=== PATIENT | female | born 1930 | race Caucasian/White ===

== ENCOUNTER → 2017-01-13 11:11 | Outpatient (CLI) | payer MEDICARE, OTHER | END | disposition home or self-care (01) | LOC: D.CT 11:11 | DX: R27.8 Other lack of coordination (principal); R41.3 Other amnesia ==

== ENCOUNTER 2017-01-22 04:42 | Inpatient (IN) | payer MEDICARE, OTHER ==
[~2017-01-22] VITALS: Ht 157.5 cm; Wt 54.4 kg
[2017-01-22 06:26] LABS: BASOPHILS 0.2 % (0-2); EOSINOPHILS 0.1 % (0-7); HEMATOCRIT 41.8 % (36.0-48.0); HEMOGLOBIN 14.1 g/dL (12-16); IMMATURE GRANULOCYTES 0.2 % (0-5); LYMPHOCYTES 4.2 % (15-50); MCH 33.6 pg (26.0-34.0); MCHC 33.7 g/dL (31.0-37.0); MCV 99.5 fL (80.0-100.0); MEAN PLATELET VOLUME 10.8 fL (7.4-10.4); MONOCYTES 8.4 % (2-11); NEUTROPHILS 86.9 % (40-80); PLATELET COUNT 184 10x3/uL (130-400); RDW 14.2 % (11.5-14.5); WBC 11.5 10x3/uL (4.8-10.8)
[2017-01-22 06:49] LABS: ALBUMIN 3.7 g/dL (3.4-5.0); ALKALINE PHOSPHATASE 51 U/L (46-116); ALT (SGPT) 21 U/L (10-68); AMYLASE - SERUM 30 U/L (25-115); CALC OSMOLALITY 266 mosm/kg (275-300); CALCIUM 8.8 mg/dL (8.5-10.1); CARBON DIOXIDE 29.7 mmol/L (21.0-32.0); CHLORIDE - SERUM 97 mmol/L (98-107); CREATININE - SERUM 0.6 mg/dL (0.6-1.3); GLUCOSE 124 mg/dL (74-106); LIPASE 149 U/L (73-393); PROTEIN - SERUM 7.4 g/dL (6.4-8.2); SODIUM 132 mmol/L (136-145); UREA NITROGEN 15 mg/dL (7-18); eGFR NON AFRICAN AMERICAN > 90 mL/min (90-120)
[2017-01-22 07:26] LABS: APPEARANCE CLEAR (CLEAR); BILIRUBIN NEGATIVE (NEGATIVE); COLOR DK YELLOW (YELLOW); GLUCOSE NEGATIVE (NEGATIVE); KETONE LARGE mg/dL (NEGATIVE); LEUKOCYTE ESTERASE NEGATIVE (NEGATIVE); NITRITE NEGATIVE (NEGATIVE); PROTEIN TRACE mg/dL (NEGATIVE); UROBILINOGEN NORMAL (NORMAL)
[2017-01-22 07:35] LABS: BACTERIA FEW /hpf (NONE SEEN); EPITHELIAL CELLS 0-5 /hpf (0-5); GRANULAR CAST OCC /lpf (NONE SEEN); HYALINE CAST OCC /lpf (NONE SEEN); MUCUS >1+ /lpf (NONE SEEN); RED CELLS - URINE 0-5 /hpf (0-5); WHITE CELLS - URINE 0-5 /hpf (0-5)
--- NOTE | 2017-01-22 10:45 | NUR ---
ASSESSMENT PER FLOW SHEET.PT WITHOUT DISTRESS AT PRESENT.FAMILY DECLINES NGT UNTIL SURGERY AND THEY SAID WILL PLACE IT WHILE SHE IS SLEEPING.FALL PREVENTION IN PLACE WITH BED ALARM BED
[2017-01-22 16:29] VITALS: BP 148/70; BMI 22.0
--- NOTE | 2017-01-22 16:36 | NUR ---
PT VERY UPSET THIS AFTERNOON.REFUSING MEDS AND TRYING TO GET OUT OF BED. CAREGIVER AT BEDSIDE SAYS THIS IS NOT HER NORMAL BEHAVIOR. CAREGIVER HAS CALLED FAMILY.
--- NOTE | 2017-01-22 17:00 | NUR ---
BETTER NOW FAMILY IS BACK.COOPERATIVE TO LETTING US PROVIDE CARE.REMAINS WITHOUT EMESIS.WITHOUT C/O PAIN.CONT PLAN OF CARE
[2017-01-22 20:00] VITALS: BP 152/90
--- NOTE | 2017-01-22 22:32 | NUR ---
REC'D LYING IN BED. ALERT AND ORIENTED X3. DENIED PAIN AT THIS TIME. NO DISTRESS NOTED. HAS A CAREGIVER WITH HER 26/12. DAUGHTERS SIGNED CONSENT FORMS FOR SURGERY IN THE AM, ON CHART. INSRUCTED TO CALL IF NEEDED ANYTHING. VERBALIZED UNDERSTANDING. BED LOW, LOCKED, CALL LIGHT IN REACH, ALARM ON. WILL ADMIN PM/AM MEDS PRESCRIBED.
[2017-01-23] VITALS: BP 156/84
--- NOTE | 2017-01-23 00:30 | NUR ---
PT RESTING QUIETLY, EYES CLOSED. RESP EVEN, UNLABORED. NO DISTRESS NOTED. CONTINUE COUNTY ADVISER'S PLAN OF CARE.
[2017-01-23 04:00] VITALS: BP 147/71
[2017-01-23 05:53] LABS: BASOPHILS 0.3 % (0-2); EOSINOPHILS 0.4 % (0-7); HEMATOCRIT 38.5 % (36.0-48.0); HEMOGLOBIN 12.7 g/dL (12-16); IMMATURE GRANULOCYTES 0.3 % (0-5); LYMPHOCYTES 10.3 % (15-50); MCH 33.4 pg (26.0-34.0); MCV 101.3 fL (80.0-100.0); MEAN PLATELET VOLUME 11.3 fL (7.4-10.4); MONOCYTES 9.4 % (2-11); NEUTROPHILS 79.3 % (40-80); PLATELET COUNT 185 10x3/uL (130-400); RDW 14.3 % (11.5-14.5)
[2017-01-23 06:14] LABS: ALKALINE PHOSPHATASE 40 U/L (46-116); ALT (SGPT) 18 U/L (10-68); CALC OSMOLALITY 274 mosm/kg (275-300); CALCIUM 8.1 mg/dL (8.5-10.1); CARBON DIOXIDE 27.5 mmol/L (21.0-32.0); CHLORIDE - SERUM 103 mmol/L (98-107); CREATININE - SERUM 0.5 mg/dL (0.6-1.3); GLUCOSE 101 mg/dL (74-106); MAGNESIUM - SERUM 1.7 mg/dL (1.8-2.4); PHOSPHOROUS 3.4 mg/dL (2.5-4.9); PRE-ALBUMIN 15.3 mg/dL (18.0-35.7); PROTEIN - SERUM 6.2 g/dL (6.4-8.2); SODIUM 137 mmol/L (136-145); UREA NITROGEN 14 mg/dL (7-18); eGFR NON AFRICAN AMERICAN > 90 mL/min (90-120)
[2017-01-23 06:15] LABS: POTASSIUM - SERUM 3.3 mmol/L (3.5-5.1)
--- NOTE | 2017-01-23 07:45 | NUR ---
PT ASSESSMENT COMPLETE AWAKE AND ALERT ORINETD TO NAME ONLY CAREGIVER AT BEDSIDE. KCL RIDER INFUSING PER PROTOCOL. SEE FLOWSHEET FOR COMPLETE ASSESSMENT. PT NPO FOR INGUNAL HERNIA REPAIR TODAY WITH DR BRANNON.
[2017-01-23 09:32] VITALS: BP 149/78
--- NOTE | 2017-01-23 09:50 | NUR ---
PATIENT IV ALARMING. POTASSIUM FINISHED. NOTIFIED DRY PASTE SUPERVISOR. NO COMPLAINTS OR SIGNS OF DISTRESS. FAMILY AT BEDSIDE. CALL LIGHT WITHIN REACH.
[2017-01-23 11:58] VITALS: BP 143/77
--- NOTE | 2017-01-23 12:55 | NUR ---
Patient Name: MAC BOSCH Admission Status: ER Accout number: [id number] Admission Date: 01-22-2017 : 1929 Admission Diagnosis: Attending: RUDOLPH Current LOS: 1 Anticipated DC Date: 01-25-2017 Planned Disposition: Home Primary Insurance: MEDICARE A & B Discharge Planning Comments: CM MET WITH MET WITH PATIENTS DAUGHTERS (RAY AND CESIA) REGARDING D/C NEEDS AND PLANS. DAUGHTERS STATED PATIENT LIVES AT [facility] AND WILL RETURN THERE WITH 24/ CARE WITH PRIVATE CAREGIVERS. PCP IS DR. ZHANG AND PHARMACY IS [facility]. PATIENT WAS GETTING AROUND BEFORE THIS SURGERY AND DAUGHTERS STATED SHE WILL NEED A ROLATOR WALKER AT DISCHARGE. BOTH DAUGHTERS ARE FROM [place] AND ARE AT BEDSIDE WITH PATIENT. CM WILL CONTINUE TO FOLLOW PATIENT WITH D/C NEEDS AND PLANS. PCP DR. VICENTE CASTRO ON [facility] [phone] RAY (DAUGHTER) [phone] CESIA (DAUGHTER) [phone] Support Team Member: Beverly Roberts How many steps to enter\exit or inside your home? 0 0 * PCP DR. ZHANG 0 * Pharmacy [facility] 0 * Preadmission Environment Assisted Living 0 * Facility Name [facility] 0 * ADLs Partial Dependent 0 * Partial ADLs (Assistance needed) Bathing Dressing Medication Management 0 * Other Equipment NONE 0 * List name and contact numbers for known caregivers / representatives who currently or will assist patient after discharge: RAY [phone] CESIA [phone] 0 * Community resources currently utilized Private Duty Care 0 * Please name any agencies selected above. PRIVATE 0 * Additional services required to return to the preadmission environment? Yes 0 * Can the patient safely return to the preadmission environment? Yes 0 * Has this patient been hospitalized within the prior 30 days at any hospital? No 0 Grand Total: 0
--- NOTE | 2017-01-23 13:00 | NUR ---
PT PREOPPED FAMILY REFUSED TO HAVE PO ROUBINOL CALL PLACED TO DR MCCORD NEW ORDER FOR .2 OF IV ROUBINAL UNABLE TO PUSH PER PROTOCOL ON FLOOR PER THIS NURSE WILL REPORT WHEN OR TEAM COMES TO TRANSPORT
[2017-01-23 13:28] VITALS: Ht 157.5 cm; Wt 54.4 kg
--- NOTE | 2017-01-23 15:04 | CN ---
PATIENT NAME:MAC BOSCH MEDICAL RECORD: [id number] : [birth year] LOCATION:D.[facility] ADMIT DATE: 01/22/17 ACCOUNT: [id number] CONSULTING PHYSICIAN: BUCKY BRANNON MD REFERRING PHYSICIAN: DOMINIC YUNG MD DATE OF CONSULTATION: 01/22/2017 Surgical Consultation CHIEF COMPLAINT: Vomiting. This is a patient of Dr. Witt. I have personally discussed the case with Dr. Lopez. I have personally reviewed the CT images. I have personally reviewed the CT report. The patient has had nausea and vomiting since yesterday morning. She has a reducible left inguinal hernia. I was able to reduce it in the presence of a female nurse in the Emergency Room and then later on the floor again. She has a small-bowel obstruction due to this hernia. I am going to plan for left inguinal hernia repair with mesh tomorrow. The risks, possible complications and alternatives to procedure were explained to the patient and her family. They elected to proceed. Palpation aggravates. Nothing alleviates. Symptoms are of sudden onset. The patient has some metallic clips in the left lower quadrant and that is from a prior colon resection performed by Dr. Mcmahan about 15 years ago. The patient rates her pain as severe pain. PAST MEDICAL AND SURGICAL HISTORY: Hypothyroidism, depression, hypertension, irritable bowel syndrome. ALLERGIES: ASPIRIN, PENICILLIN, AND VALIUM. HOME MEDICINES: Synthroid. REVIEW OF SYSTEMS: No fever, no chills. Positive for nausea and vomiting. Positive for left groin pain. Positive for abdominal distention. Positive for diffuse abdominal pain, which is mild. No night sweats, no weight loss, no anorexia. She is unable to keep liquids down. SOCIAL HISTORY: Nonsmoker. PHYSICAL EXAMINATION: GENERAL: The patient does appear acutely ill. Also appears chronically ill. VITAL SIGNS: Reviewed. The entire physical examination was performed in the presence of a female nurse. EARS: External ears appear normal. EYES: Extraocular movements are intact. NECK: Trachea is midline. CHEST: No intercostal retractions. PULMONARY: Nonlabored, no stridor. ABDOMEN: Nontender. No peritonitis to percussion. GENITOURINARY: Left inguinal hernia, which is reducible. PSYCHIATRIC: Anxious affect. CONSULT REPORT [id number] MAC BOSCH NEUROLOGIC: Answers questions appropriately. She is hard of hearing. BACK: Mild thoracic kyphosis is noted. LYMPHATICS: No lymphangitic streaking of the exposed extremities. IMPRESSION: Left inguinal hernia with small-bowel obstruction. The hernia is reducible, so hopefully the bowel obstruction will resolve by this time tomorrow as the patient had an anesthetic risk due to a full stomach. I have personally reviewed the CT images with the patient's daughters. PLAN: N.p.o. The patient declined the nasogastric tube. Left inguinal hernia repair with mesh in the OR tomorrow. TRANSINT:[id number] Voice Confirmation ID: [id number] DOCUMENT ID: [id number] BUCKY BRANNON MD at 1504 CC: [id number] DICTATION DATE: 01/22/17 1308 PROCESS LEAD: 01/22/17 1604 ADM IN [facility] [address] [place] [address]
--- NOTE | 2017-01-23 17:14 | NUR ---
PT IN OR AT THIS TIME. FAMILY WAITING IN [facility]. TRANSFERED TO ROOM 2218 EARLIER DUE TO PT FAMILY REFUSAL TO LET PT RETURN TO PREVIOUS ROOM BECAUSE OF WHAT THEY DETERMINED TO BE OVERUSE OF PANTS BUSHELER.
[2017-01-23 18:43] VITALS: BP 137/61
--- NOTE | 2017-01-23 18:45 | NUR ---
PT RETURNED TO ROOM FROM RECOVERY ROOM VIA BED AWAKE AND CONFUSED HOWEVER IS NORMAL FOR PT. VITAL SIGNS WITH IN NORMAL LIMITS.
[2017-01-23 20:00] VITALS: BP 147/70
--- NOTE | 2017-01-23 20:00 | NUR ---
ASSESSMENT PER FLOWSHEET. IV PATENT RT FOREARM OF NS AT 100CC'S/HR. SITE CLEAR. HUNG #4 OF K+ RIDER WAS ORDERED PREOP. DRESSING TO LEFT GROIN INCISIONAL SITE C/D/I. DAUGHTERS X2 AT BEDSIDE. CAREGIVER BEDSIDE. PT AWAKE FOR SHORT PERIODS OF TIME DRANK SOME APPLEJUICE. THEN BACK TO SLEEP.
--- NOTE | 2017-01-23 21:00 | NUR ---
PT NOW AWKE WANTING SOMETHING TO DRINK CHICKEN BROTH AND APPLE JUICE GIVEN TO PATIENT. ASSISTED BY CAREGIVER. DAUGHTERS HAVE NOW LEFT FOR HOME.
--- NOTE | 2017-01-23 22:00 | NUR ---
PT HAS NOW VOIDED X2 BLUE COLORED URINE. NO BM'S AT THIS TIME.
[2017-01-24] VITALS (7 sets, daily range): BP systolic 84–156; BP diastolic 44–85
--- NOTE | 2017-01-24 | NUR ---
EYES CLOSED RESPIRATIONS WITH EASE AND UNLABORED.
--- NOTE | 2017-01-24 02:00 | NUR ---
RESTING QUIETLY. SITTER AT BEDSIDE.
--- NOTE | 2017-01-24 04:00 | NUR ---
VOIDS ON BEDPAN. DENIES NEEDS.
[2017-01-24] MEDS ORDERED: ARICEPT5 MG PO (04:10)
[2017-01-24] MEDS ORDERED: CALMOSEPTINE OI71 GM TOPICAL (04:10)
[2017-01-24 05:55] LABS: BASOPHILS 0.1 % (0-2); EOSINOPHILS 0 % (0-7); HEMATOCRIT 36.3 % (36.0-48.0); HEMOGLOBIN 12.1 g/dL (12-16); IMMATURE GRANULOCYTES 0.2 % (0-5); LYMPHOCYTES 8.1 % (15-50); MCH 33.7 pg (26.0-34.0); MCHC 33.3 g/dL (31.0-37.0); MCV 101.1 fL (80.0-100.0); MONOCYTES 13.4 % (2-11); NEUTROPHILS 78.2 % (40-80); PLATELET COUNT 178 10x3/uL (130-400); RBC 3.59 10x6/uL (4.00-5.40); RDW 14.4 % (11.5-14.5); WBC 8.4 10x3/uL (4.8-10.8)
[2017-01-24 06:19] LABS: ALBUMIN 2.9 g/dL (3.4-5.0); ALKALINE PHOSPHATASE 38 U/L (46-116); ALT (SGPT) 20 U/L (10-68); BILIRUBIN - TOTAL 0.74 mg/dL (0.2-1.3); CALC OSMOLALITY 279 mosm/kg (275-300); CARBON DIOXIDE 23.7 mmol/L (21.0-32.0); CHLORIDE - SERUM 105 mmol/L (98-107); CREATININE - SERUM 0.5 mg/dL (0.6-1.3); GLUCOSE 131 mg/dL (74-106); POTASSIUM - SERUM 3.5 mmol/L (3.5-5.1); PROTEIN - SERUM 6.1 g/dL (6.4-8.2); SODIUM 139 mmol/L (136-145); UREA NITROGEN 13 mg/dL (7-18); eGFR NON AFRICAN AMERICAN > 90 mL/min (90-120)
--- NOTE | 2017-01-24 07:33 | NUR ---
pt seen and assessed. no complaints at present. confused to place and time. lungs clear. dressing noted to left groin clean and dry. bowel sounds present. currently up in chair at bedside with yellow armband and blue nonskid socks on. sitter at bedside. call light in reach
--- NOTE | 2017-01-24 11:18 | NUR ---
PT REMAINS DISORIENTED TO PLACE AND TIME. ANBULATED SEVERAL TIMES TO BSC AND VOIDS AND PASSING GAS. BACK TO CHAIR. FAMILY AT BEDSIDE.
--- NOTE | 2017-01-24 20:00 | NUR ---
ASSESMENT PER FLOWSHEET. DRESSING TO LEFT GROIN C/D/I. IV PATENT LEFT ARM OF NS AT 100CC'S/HR SITE CLEAR. WRAPPED ARM IN GAUZE WITH TAPE. BED ALARM BED ON AND ACTIVATED. SR UP X3 CALL LIGHT WITHIN REACH DAUGHTERS AT BEDSIDE WITH CAREGIVER. DAUGHTERS REQUESTING MD BE CALLED TO GET SOME MED TO HELP THEIR MOM REST TONIGHT. NOTIFIED YULIA MUNOZ ORDERS REC'D.
--- NOTE | 2017-01-24 21:39 | NUR ---
MEDS GIVEN PER AUG. MELATONIN 6MG PO GIVEN FOR REST.
--- NOTE | 2017-01-24 22:30 | NUR ---
REMAINS RESTLESS. AMBULATED IN HALLWAY WITH CAREGIVER. REMAINS CONFUSED STATES GOING TO HER HOME RIGHT NOW. ASSISTED BACK TO HER ROOM. SITTING UP I CHAIR AT BEDSIDE. STILL NO BM'S.
--- NOTE | 2017-01-25 | NUR ---
FIXED PATIENT PRUNE JUICE/SPRITE WARMED FOR CONSTIPATION. DAUGHTERS AT BEDSIDE.
--- NOTE | 2017-01-25 00:43 | NUR ---
RESTING NOW IN BED DAUGHTERS REQUESTED NO VITAL SIGNS UNTIL 0400. PT CALM AND TRYING TO GO TO SLEEP. BED ALARM ON CAREGIVER AT BEDSIDE.
--- NOTE | 2017-01-25 02:00 | NUR ---
EYES CLOSED RESPIRATIONS WITH EASE AND UNLABORED. CAREGIVER AT BEDSIDE.
[2017-01-25 04:00] VITALS: BP 142/75
--- NOTE | 2017-01-25 04:30 | NUR ---
RESTING QUIETLY. SR UP X3 CALL LIGHT WITHIN REACH. BED ALARM BED ON. SITTER AT BEDSIDE.
--- NOTE | 2017-01-25 06:00 | NUR ---
MEDS GIVEN PER MAR. NO CHANGES IN ASSESSMENT
[2017-01-25 06:21] LABS: BASOPHILS 0.8 % (0-2); EOSINOPHILS 3.7 % (0-7); HEMATOCRIT 34.9 % (36.0-48.0); HEMOGLOBIN 11.5 g/dL (12-16); LYMPHOCYTES 20.4 % (15-50); MCH 33.3 pg (26.0-34.0); MCV 101.2 fL (80.0-100.0); MEAN PLATELET VOLUME 10.9 fL (7.4-10.4); MONOCYTES 17.3 % (2-11); NEUTROPHILS 57.8 % (40-80); PLATELET COUNT 176 10x3/uL (130-400); RBC 3.45 10x6/uL (4.00-5.40); RDW 14.3 % (11.5-14.5)
[2017-01-25 06:23] LABS: WBC 4.9 10x3/uL (4.8-10.8)
[2017-01-25 06:45] LABS: ALBUMIN 2.7 g/dL (3.4-5.0); ALKALINE PHOSPHATASE 36 U/L (46-116); ALT (SGPT) 20 U/L (10-68); CALC OSMOLALITY 276 mosm/kg (275-300); CALCIUM 7.7 mg/dL (8.5-10.1); CARBON DIOXIDE 24.4 mmol/L (21.0-32.0); CHLORIDE - SERUM 106 mmol/L (98-107); CREATININE - SERUM 0.4 mg/dL (0.6-1.3); GLUCOSE 97 mg/dL (74-106); POTASSIUM - SERUM 3.2 mmol/L (3.5-5.1); PROTEIN - SERUM 5.3 g/dL (6.4-8.2); SODIUM 139 mmol/L (136-145); UREA NITROGEN 11 mg/dL (7-18); eGFR NON AFRICAN AMERICAN > 90 mL/min (90-120)
--- NOTE | 2017-01-25 07:20 | NUR ---
REPORT RECEIVED, ASSUMED CARE OF PT. PT RESTING WITH EYES SHUT, NO SIGNS OF ACUTE DISTRESS. BED ALARM ON. L FOREARM IV INFUSING ORDERED, DRSG CLEAN, DRY AND INTACT. CARE-ACCOUNT SERVICES ANALYST AT BEDSIDE. BED IN LOWEST POSITION, SIDE RAILS UP X 2, CALL LIGHT WITHIN REACH.
[2017-01-25 08:42] VITALS: BP 166/86
--- NOTE | 2017-01-25 10:49 | NUR ---
Lacy CLARKE DRSG CHANGED. CLEAN, DRY AND INTACT.
[2017-01-25 12:16] VITALS: BP 155/88
--- NOTE | 2017-01-25 14:19 | NUR ---
NUTRITION MONITORING & EVAL CHART REVIEWED. NOTE POSSIBLE DC. REG DIET BUT POOR INTAKE RECENT MEALS. RD FOLLOWING
--- NOTE | 2017-01-25 16:12 | NUR ---
PT RESTING IN BED, EYES CLOSED, EASILY AROUSED. CAREGIVER AT BEDSIDE. BED IN LOWEST POSITION, SIDE RAILS UP X 2, BED ALARM ON, CALL LIGHT WITHIN REACH.
[2017-01-25 16:19] VITALS: BP 166/99
--- NOTE | 2017-01-25 19:23 | NUR ---
PT RESTING IN ROOM, FAMILY AT BEDSIDE, NO COMPLAINTS AT THIS TIME. BED IN LOWEST POSITION, SIDE RAILS UP X 2, BED ALARM ON, CALL LIGHT WITHIN REACH.
[2017-01-25 20:00] VITALS: BP 171/93
--- NOTE | 2017-01-25 20:00 | NUR ---
ASSESSMENT PER FLOWSHEET. IV SITE SWOLLEN IV REMOVED WITH TIP INTACT. FAMILY STATES PT IS GOING HOME IN AM AND REQUESTED NO IV BE PLACED. PATIENT IS EATING AND DRINKING WELL. FAMILY MEMBERS AND VENEER PRESS OPERATOR AT BEDSIDE.BED ALARM BED ON SR UP X3 CALL LIGHT WITHIN REACH.
--- NOTE | 2017-01-25 22:00 | NUR ---
MEDS GIVEN PER MAR. CAREGIVER WALKS OUTSIDE FOR A BREAK. DAUGHTERS HAVE GONE HOME FOR THE NIGHT.
--- NOTE | 2017-01-25 22:30 | NUR ---
CAREGIVER RETURNS TO ROOM.
--- NOTE | 2017-01-25 23:47 | NUR ---
PT RESTING IN BED. EYES CLOSED RESPIRATIONS WITH EASE AND UNLABORED.
--- NOTE | 2017-01-26 02:30 | NUR ---
BED ALARM SOUNDING PATIENT TRYING TO CLIMB OUT OF BED. ASSISTED TO BATHROOM VOIDED ON COMMODE. PATIENT REMAINS CONFUSED. TO SURROUNDINGS.ASSISTED BACK TO BED SR UP X3 CALL LIGHT WITHIN REACH. BED ALARM ACTIVATED. SITTER AT BEDSIDE SLEEPING IN THE CHAIR.
[2017-01-26 04:00] VITALS: BP 143/81
--- NOTE | 2017-01-26 04:33 | NUR ---
EYES CLOSED RESPIRATIONS WITH EASE AND UNLABORED.
[2017-01-26 06:01] LABS: BASOPHILS 0.7 % (0-2); EOSINOPHILS 3.3 % (0-7); HEMATOCRIT 39.2 % (36.0-48.0); HEMOGLOBIN 13.1 g/dL (12-16); IMMATURE GRANULOCYTES 0.2 % (0-5); LYMPHOCYTES 20.9 % (15-50); MCH 33.7 pg (26.0-34.0); MCHC 33.4 g/dL (31.0-37.0); MCV 100.8 fL (80.0-100.0); MONOCYTES 12.8 % (2-11); NEUTROPHILS 62.1 % (40-80); PLATELET COUNT 207 10x3/uL (130-400); RBC 3.89 10x6/uL (4.00-5.40); RDW 14.2 % (11.5-14.5); WBC 5.4 10x3/uL (4.8-10.8)
--- NOTE | 2017-01-26 06:12 | NUR ---
AWAKE CONFUSED CAREGIVER GAVE PT BATH AND LINENS CHANGED PT NOW SITTING IN CHAIR AT BEDSIDE.
[2017-01-26 06:28] LABS: ALBUMIN 3.1 g/dL (3.4-5.0); ALKALINE PHOSPHATASE 43 U/L (46-116); ALT (SGPT) 23 U/L (10-68); CARBON DIOXIDE 28.3 mmol/L (21.0-32.0); CHLORIDE - SERUM 102 mmol/L (98-107); CREATININE - SERUM 0.5 mg/dL (0.6-1.3); GLUCOSE 101 mg/dL (74-106); POTASSIUM - SERUM 3.3 mmol/L (3.5-5.1); PROTEIN - SERUM 6.6 g/dL (6.4-8.2); SODIUM 137 mmol/L (136-145); eGFR NON AFRICAN AMERICAN > 90 mL/min (90-120)
[2017-01-26 06:31] LABS: CALC OSMOLALITY 271 mosm/kg (275-300); UREA NITROGEN 8 mg/dL (7-18)
--- NOTE | 2017-01-26 07:20 | NUR ---
REPORT RECIEVED, ASSUMED CARE OF PT. PT UP TO CHAIR. CAREGIVER IN ROOM. NO COMPLAINTS AT THIS TIME.
--- NOTE | 2017-01-26 09:08 | OP ---
PATIENT NAME: MAC BOSCH MEDICAL RECORD: [id number] :[birth year] LOCATION:D.[facility]18 ADMISSION DATE:01/22/17 SURGEON: BUCKY BRANNON MD DATE OF OPERATION: 01/23/2017 PREOPERATIVE DIAGNOSES: 1. Incarcerated left inguinal hernia. 2. Incarcerated left femoral inguinal hernia. PROCEDURE: Left inguinal hernia repair with bilayered polypropylene preperitoneal mesh. SURGEON: Bucky Brannon MD. GARNETT FIXER: None. BLOOD LOSS: Minimal. ANESTHESIA: General. COMPLICATIONS: None. The risks, possible complications and alternatives to procedure were explained to patient's family and the patient. They elected to proceed. OPERATIVE COURSE: The patient was conveyed to operating room electively on 01/23/2017. General anesthesia was induced by the anesthesia staff. The abdomen and genitals were sterilely prepped and draped. A transverse incision was accomplished in the left groin. Sharp dissection was carried down through skin and subcutaneous tissue as well as Maryjane fascia. The external oblique aponeurosis was incised along the direction of its fibers. I bluntly dissected down through the internal oblique and transversus abdominis muscle layers. A preperitoneal pocket was fashioned bluntly. I divided the round ligament on the right. I then entered the hernia sac. There was incarcerated preperitoneal fat. There was no incarcerated bowel. I opened the peritoneum wider and ran portions of small bowel that I could identify in the left lower quadrant. There was 1 portion of small bowel that was bruised, but it was not necrotic and I think that that is the bowel that I was able to reduce the day before. I remove some incarcerated preperitoneal fat from the hernia sac. The hernia sac was removed as well. This was done sharply. I reperitonealized with a running 3-0 Vicryl suture. I then cut 2 ovals out of polypropylene mesh. The 2 ovals were sutured, one on top of the other with a running #1 Surgidac. The mesh was placed in the preperitoneal space. I then sutured the transverse abdominis and internal oblique muscle layers together with the underlying mesh in a horizontal mattress fashion with 0 Surgidac. The external oblique aponeurosis was closed with running #1 Vicryls. Maryjane fascia was approximated with interrupted 3-0 Vicryls. The subdermis was approximated with interrupted 3-0 Vicryls. The skin was approximated with a running intracuticular 3-0 Vicryl. Benzoin and Steri-Strips were applied. The patient was then extubated and conveyed to post-anesthesia care unit. TRANSINT:[id number] Voice Confirmation ID: [id number] DOCUMENT ID: [id number] OPERATIVE REPORT [id number] MAC BOSCH ROBERT MD at 0908 CC: DOMINIC YUGN MD [id number] DICTATION DATE: 01/24/17 1144 SUPPLY TEACHER: 01/24/17 1437 ADM IN [place] [id number] [place] [id number]
[2017-01-26] MEDS ORDERED: MIRALAX17 GM PO (10:37)
--- NOTE | 2017-01-26 10:54 | NUR ---
Wound care consult: Pt has no chronic skin breakdown or issues. There is a surgical incision on left groin with dressing clean, dry and intact.
--- NOTE | 2017-01-26 11:03 | NUR ---
CM spoke to both daughters to make sure they had everything they needed. Patient will be returning to [facility] living with 24 hours caregivers. Patient is being transferred via her caregivers car and the daughters will follow behind. [facility] notified of discharge
[2017-01-26] MEDS ORDERED: HYDROCHLOROTH12.5 M1 PO (11:23)
[2017-01-26] MEDS ORDERED: SYNTHROID100 MCG PO (11:26)
--- NOTE | 2017-01-26 12:10 | NUR ---
ALL DISCHARGE INSTRUCTIONS GIVEN TO PT AND FAMILY. VERBALIZED UNDERSTANDING.
--- NOTE | 2017-01-26 13:12 | NUR ---
PT DISCHARGED FROM FLOOR WITH WHEELCHAIR, WITH FAMILY. ESCORTED TO FAMILY CAR WITH PERSONAL BELONGINGS.
== END 2017-01-26 13:13 | disposition home or self-care (01) | DRG 352 ==
LOC: D.ER 04:42 → D.MS 10:21
PROVIDERS: Family Medicine; Surgery; ADMIT Emergency Medicine
PROC: 0YU60JZ Supplement Left Inguinal Region with Synthetic Substitute, Open Approach (ICD-10-PCS; principal; 2017-01-23 11:45)
DX: K40.30 Unilateral inguinal hernia, with obstruction, without gangrene, not specified as recurrent (principal); E03.9 Hypothyroidism, unspecified; K58.9 Irritable bowel syndrome, unspecified; I11.0 Hypertensive heart disease with heart failure; I50.9 Heart failure, unspecified

== ENCOUNTER 2017-06-10 21:16 | Emergency (ER) | payer MEDICARE, OTHER ==
[2017-01-23 13:28] VITALS: BMI 21.9
[~2017-06-10 21:16] MED LIST: ARICEPT5 MG PO; CALMOSEPTINE OI71 GM TOPICAL; HYDROCHLOROTH12.5 M1 PO; MIRALAX17 GM PO; SYNTHROID100 MCG PO
== END 2017-06-10 22:30 | disposition home or self-care (01) ==
LOC: D.ER 21:16
DX: S01.81XA Laceration without foreign body of other part of head, initial encounter (principal); W06.XXXA Fall from bed, initial encounter; Y93.89 Activity, other specified; Y92.122 Bedroom in nursing home as the place of occurrence of the external cause; I10 Essential (primary) hypertension; K58.9 Irritable bowel syndrome, unspecified; E03.9 Hypothyroidism, unspecified